=== PATIENT | female | born 1950 | race Two or more races ===

== ENCOUNTER 2016-12-13 10:10 | Outpatient (CLI) | payer MEDICARE, OTHER | END 2016-12-13 23:59 | disposition home or self-care (01) | LOC: WOU 10:10 | PROVIDERS: ATTEND Podiatrist Foot & Ankle Surgery | DX: M21.622 Bunionette of left foot (principal); M20.12 Hallux valgus (acquired), left foot; M19.90 Unspecified osteoarthritis, unspecified site; J45.909 Unspecified asthma, uncomplicated; H40.9 Unspecified glaucoma; Z79.899 Other long term (current) drug therapy | CPT/HCPCS: G0463 ==

== ENCOUNTER 2016-12-18 09:00 | Outpatient (CLI) | payer MEDICARE, OTHER | END 2016-12-18 23:59 | disposition home or self-care (01) | LOC: WOU 09:00 | PROVIDERS: ATTEND Podiatrist Foot & Ankle Surgery | DX: M19.072 Primary osteoarthritis, left ankle and foot (principal); M19.071 Primary osteoarthritis, right ankle and foot; M20.11 Hallux valgus (acquired), right foot; M21.42 Flat foot [pes planus] (acquired), left foot; M20.12 Hallux valgus (acquired), left foot | CPT/HCPCS: 73630-TC ==

== ENCOUNTER 2016-12-20 09:21 | Outpatient (CLI) | payer MEDICARE, OTHER | END 2016-12-20 23:59 | disposition home or self-care (01) | LOC: WOU 09:21 | PROVIDERS: ATTEND Podiatrist Foot & Ankle Surgery | DX: M20.12 Hallux valgus (acquired), left foot (principal); M21.622 Bunionette of left foot; M20.5X2 Other deformities of toe(s) (acquired), left foot; M79.672 Pain in left foot; M19.072 Primary osteoarthritis, left ankle and foot | CPT/HCPCS: G0463 ==

== ENCOUNTER 2017-01-03 09:30 | Inpatient (IN) | payer MEDICARE, OTHER ==
[2017-01-03] MEDS ORDERED: MAG HYDROX/AL HYDROX/SIMETH 30 ML UDC PO PRN (11:30)
[2017-01-03] MEDS ORDERED: ACETAMINOPHEN 325 MG TABLET PO PRN (11:30)
[2017-01-03] MEDS ORDERED: ZOLPIDEM TARTRATE 5 MG TABLET PO PRN (11:30)
[2017-01-03] MEDS ORDERED: ONDANSETRON HCL/PF 4 MG/2 ML VIAL IVP PRN (11:30)
[2017-01-03] MEDS ORDERED: MAGNESIUM HYDROXIDE 30 ML UDC PO PRN (11:30)
[2017-01-03] MEDS ORDERED: Z GUARD REMEDY 2 OZ OINT TP PRN (11:30)
[2017-01-03] MEDS ORDERED: MIDAZOLAM HCL 2 MG/2ML VIAL ONE (12:04)
[2017-01-03] MEDS ORDERED: FENTANYL PF 100MCG/2ML AMPUL ONE ×4 (12:04→15:44)
[2017-01-03] MEDS ORDERED: LIDOCAINE 1% INJ 50 ML MDV IJ ONE (12:11)
[2017-01-03] MEDS ORDERED: BUPIVACAINE MPF 0.5% W/EPI INJ 30 ML VIAL ONE (12:11)
[2017-01-03] MEDS ORDERED: HYDROMORPHONE 1 MG/1 ML DISP.SYRIN ONE ×2 (16:34→16:52)
[2017-01-03] MEDS ORDERED: ANESTHESIA TRAY IN PYXIS 1 EA TRAY MC ONE (17:21)
[2017-01-03] MEDS ORDERED: BIMA2.5D5 EACHEYE (17:30)
[2017-01-03] MEDS ORDERED: VALS80TA2 PO (17:30)
[2017-01-03] MEDS ORDERED: TRAM50TA2 PO (17:30)
[2017-01-03] MEDS ORDERED: CELE200C PO (17:30)
[2017-01-03] MEDS ORDERED: CYCL30DR EACHEYE (17:30)
[2017-01-03] MEDS ORDERED: DOCU-25 PO (17:30)
[2017-01-03] MEDS ORDERED: BRIM5DRO EACHEYE (17:30)
[2017-01-03] MEDS ORDERED: METH2.5T PO (17:30)
[2017-01-03] MEDS ORDERED: TRIA1CAP6 PO (17:30)
[2017-01-03] MEDS ORDERED: PANT40TA4 PO (17:30)
[2017-01-03] MEDS ORDERED: TIMO5DRO4 EACHEYE (17:30)
[2017-01-03] MEDS ORDERED: AMLO5TAB2 PO (17:30)
[2017-01-03] MEDS ORDERED: ALBU18HF2 IH (17:30)
[2017-01-03] MEDS ORDERED: FOLI1TAB16 PO (17:30)
[2017-01-03] MEDS ORDERED: SULF500T8 PO (17:31)
[2017-01-04] MEDS: PANTOPRAZOLE 40 MG TABLET.DR PO SCH (08:17)
[2017-01-04] MEDS: VALSARTAN 80 MG TABLET PO SCH (13:01)
[2017-01-04] MEDS: AMLODIPINE BESYLATE 5 MG TABLET PO SCH (13:01)
[2017-01-05] MEDS: HYDROCODONE/APAP 5/325MG 1 EACH TABLET PO PRN ×2 (00:55→08:44)
[2017-01-05] MEDS: PANTOPRAZOLE 40 MG TABLET.DR PO SCH (08:30)
[2017-01-05] MEDS: AMLODIPINE BESYLATE 5 MG TABLET PO SCH (08:30)
[2017-01-05] MEDS: VALSARTAN 80 MG TABLET PO SCH (08:31)
[2017-01-05] MEDS ORDERED: TRAMADOL HCL 50 MG TABLET PO PRN (09:00)
[2017-01-05] MEDS ORDERED: TIMOLOL 0.5% SOLN OPHTH 5 ML BOTTLE EACHEYE SCH (09:00)
[2017-01-05] MEDS ORDERED: DOCUSATE SODIUM 100 MG CAPSULE PO PRN (09:00)
[2017-01-05] MEDS ORDERED: Medication Not On Formulary EA (Cyclosporine (Restasis) 1 DROP) EACHEYE SCH (09:00)
[2017-01-05] MEDS: TRIAMTERENE/HYDROCHLOROTHIAZID (37.5/25MG) 1 UDCAP PO SCH (10:09)
[2017-01-05] MEDS: CELECOXIB 100 MG CAPSULE PO SCH (10:10)
[2017-01-05] MEDS: FOLIC ACID 1 MG TABLET PO SCH (10:10)
[2017-01-05] MEDS: SULFASALAZINE 500 MG TABLET PO SCH ×2 (11:29→17:59)
[2017-01-05] MEDS: BRIMONIDINE TARTRATE OPHT SOLN 5 ML BOTTLE EACHEYE SCH ×2 (11:32→17:59)
[2017-01-05] MEDS ORDERED: ALBUTEROL FS 2.5 MG/3 ML VIAL.NEB NEB SCH (13:30)
[2017-01-05] MEDS: TIMOLOL EYE EACHEYE SCH (17:59)
[2017-01-05] MEDS: ALBUTEROL FS 2.5 MG/3 ML VIAL.NEB NEB SCH (19:30)
[2017-01-05] MEDS ORDERED: LATANOPROST EYE DROP 0.005% 2.5 ML BOTTLE OP SCH (22:00)
[2017-01-05] MEDS ORDERED: LATANOPROST EYE DROP 0.005% 2.5 ML BOTTLE EACHEYE SCH (22:00)
[2017-01-06] MEDS: BRIMONIDINE TARTRATE OPHT SOLN 5 ML BOTTLE EACHEYE SCH ×2 (01:52→10:47)
[2017-01-06] MEDS ORDERED: PANTOPRAZOLE 40 MG TABLET.DR PO SCH (07:30)
[2017-01-06] MEDS: ALBUTEROL FS 2.5 MG/3 ML VIAL.NEB NEB SCH (07:30)
[2017-01-06] MEDS: FOLIC ACID 1 MG TABLET PO SCH (08:25)
[2017-01-06] MEDS: VALSARTAN 80 MG TABLET PO SCH (08:25)
[2017-01-06] MEDS: AMLODIPINE BESYLATE 5 MG TABLET PO SCH (08:26)
[2017-01-06] MEDS: CELECOXIB 100 MG CAPSULE PO SCH (08:26)
[2017-01-06] MEDS: SULFASALAZINE 500 MG TABLET PO SCH (08:27)
[2017-01-06] MEDS: PANTOPRAZOLE 40 MG TABLET.DR PO SCH (08:27)
[2017-01-06] MEDS: TRIAMTERENE/HYDROCHLOROTHIAZID (37.5/25MG) 1 UDCAP PO SCH (08:27)
[2017-01-06] MEDS: TIMOLOL EYE EACHEYE SCH (08:28)
== END 2017-01-06 15:15 | DRG 505 ==
DX: M19.072 Primary osteoarthritis, left ankle and foot (principal); I10 Essential (primary) hypertension; E66.9 Obesity, unspecified; M20.12 Hallux valgus (acquired), left foot; J45.909 Unspecified asthma, uncomplicated; M21.42 Flat foot [pes planus] (acquired), left foot; M21.622 Bunionette of left foot

== ENCOUNTER 2017-01-10 12:31 | Outpatient (CLI) | payer MEDICARE, OTHER ==
[~2017-01-10 12:31] MED LIST: ALBU18HF2 IH; AMLO5TAB2 PO; BIMA2.5D5 EACHEYE; BRIM5DRO EACHEYE; CELE200C PO; CYCL30DR EACHEYE; DOCU-25 PO; FOLI1TAB16 PO; METH2.5T PO; PANT40TA4 PO; SULF500T8 PO; TIMO5DRO4 EACHEYE; TRAM50TA2 PO; TRIA1CAP6 PO; VALS80TA2 PO
== END 2017-01-10 23:59 | disposition home or self-care (01) ==
LOC: WOU 12:31
PROVIDERS: ATTEND Podiatrist Foot & Ankle Surgery
DX: Z47.89 Encounter for other orthopedic aftercare (principal); Z98.1 Arthrodesis status; M06.9 Rheumatoid arthritis, unspecified; M20.5X2 Other deformities of toe(s) (acquired), left foot; M79.672 Pain in left foot
CPT/HCPCS: A6402 ×2; G0463

== ENCOUNTER 2017-01-24 09:20 | Outpatient (CLI) | payer MEDICARE, OTHER | END 2017-01-24 23:59 | disposition home or self-care (01) | LOC: WOU 09:20 | PROVIDERS: ATTEND Podiatrist Foot & Ankle Surgery | DX: Z48.01 Encounter for change or removal of surgical wound dressing (principal); M06.9 Rheumatoid arthritis, unspecified; Z98.1 Arthrodesis status; M20.12 Hallux valgus (acquired), left foot; M20.5X2 Other deformities of toe(s) (acquired), left foot | CPT/HCPCS: A6402; G0463 ==

== ENCOUNTER 2017-02-18 11:00 | Outpatient (CLI) | payer MEDICARE, OTHER | END 2017-02-18 23:59 | disposition home or self-care (01) | LOC: WOU 11:00 | PROVIDERS: ATTEND Podiatrist Foot & Ankle Surgery | DX: Z47.89 Encounter for other orthopedic aftercare (principal); Z48.02 Encounter for removal of sutures; Z98.1 Arthrodesis status; M21.962 Unspecified acquired deformity of left lower leg | CPT/HCPCS: 73630; G0463 ==

== ENCOUNTER 2017-03-18 10:27 | Outpatient (CLI) | payer MEDICARE, OTHER | END 2017-03-18 23:59 | disposition home or self-care (01) | LOC: WOU 10:27 | PROVIDERS: ATTEND Podiatrist Foot & Ankle Surgery | DX: Z47.89 Encounter for other orthopedic aftercare (principal); Z98.1 Arthrodesis status; M20.12 Hallux valgus (acquired), left foot; M20.5X2 Other deformities of toe(s) (acquired), left foot; M06.9 Rheumatoid arthritis, unspecified; R60.0 Localized edema | CPT/HCPCS: G0463 ==

== ENCOUNTER 2017-05-06 09:46 | Outpatient (CLI) | payer MEDICARE, OTHER ==
[~2017-05-06 09:46] MED LIST changes: +DOCU-141 PO; -DOCU-25 PO
== END 2017-05-06 23:59 | disposition home or self-care (01) ==
LOC: WOU 09:46
PROVIDERS: ATTEND Podiatrist Foot & Ankle Surgery
DX: Z98.1 Arthrodesis status (principal); Z47.89 Encounter for other orthopedic aftercare; M20.12 Hallux valgus (acquired), left foot; M20.5X2 Other deformities of toe(s) (acquired), left foot; M06.9 Rheumatoid arthritis, unspecified
CPT/HCPCS: G0463

== ENCOUNTER 2017-07-15 09:30 | Outpatient (CLI) | payer MEDICARE, OTHER | END 2017-07-15 23:59 | disposition home or self-care (01) | LOC: WOU 09:30 | PROVIDERS: ATTEND Podiatrist Foot & Ankle Surgery | DX: Z09 Encounter for follow-up examination after completed treatment for conditions other than malignant neoplasm (principal); M06.9 Rheumatoid arthritis, unspecified; M20.5X1 Other deformities of toe(s) (acquired), right foot; J45.909 Unspecified asthma, uncomplicated; H40.9 Unspecified glaucoma | CPT/HCPCS: G0463 ==

== ENCOUNTER → 2017-10-31 | Outpatient (CLI) | payer MEDICARE, OTHER | END | disposition home or self-care (01) | LOC: WOU 09:10 | PROVIDERS: ATTEND Podiatrist Foot & Ankle Surgery | DX: Z98.1 Arthrodesis status (principal); Z47.89 Encounter for other orthopedic aftercare; M21.611 Bunion of right foot; M20.41 Other hammer toe(s) (acquired), right foot; M06.9 Rheumatoid arthritis, unspecified; J45.909 Unspecified asthma, uncomplicated; M20.11 Hallux valgus (acquired), right foot; M25.571 Pain in right ankle and joints of right foot | CPT/HCPCS: G0463; Z7610 ==

== ENCOUNTER 2017-11-05 11:51 | Outpatient (CLI) | payer MEDICARE, OTHER | END 2017-11-05 23:59 | disposition home or self-care (01) | LOC: RAD 11:51 | PROVIDERS: ATTEND Podiatrist Foot & Ankle Surgery | DX: M19.072 Primary osteoarthritis, left ankle and foot (principal); M20.11 Hallux valgus (acquired), right foot; M85.872 Other specified disorders of bone density and structure, left ankle and foot; M85.871 Other specified disorders of bone density and structure, right ankle and foot | CPT/HCPCS: 73630-TC ==

== ENCOUNTER 2017-11-20 09:37 | Outpatient (CLI) | payer MEDICARE, OTHER ==
[2017-11-21] MEDS ORDERED: LORA10TA68 PO (18:06)
[2017-11-21] MEDS ORDERED: CERT400K SQ (18:06)
[2017-11-21] MEDS ORDERED: BECL10.6 IH (18:06)
[2017-11-21] MEDS ORDERED: ACET-2605 PO (18:06)
[2017-11-21] MEDS ORDERED: SUMA50TA PO (18:06)
== END 2017-11-20 23:59 | disposition home or self-care (01) ==
LOC: RAD 09:37
PROVIDERS: ATTEND Podiatrist Foot & Ankle Surgery
DX: M43.00 Spondylolysis, site unspecified (principal); J93.9 Pneumothorax, unspecified
CPT/HCPCS: 71046

== ENCOUNTER 2017-11-28 08:57 | Outpatient (CLI) | payer MEDICARE, OTHER ==
[~2017-11-28 08:57] MED LIST changes: +ACET-2605 PO; +BECL10.6 IH; +CERT400K SQ; -DOCU-141 PO; -FOLI1TAB16 PO; +HYDR-552 PO; +LEFL20TA18 PO; +LORA10TA68 PO; -SULF500T8 PO; +SUMA50TA PO; -TRAM50TA2 PO; -VALS80TA2 PO
== END 2017-11-28 23:59 | disposition home or self-care (01) ==
LOC: WOU 08:57
PROVIDERS: ATTEND Podiatrist Foot & Ankle Surgery
DX: Z47.89 Encounter for other orthopedic aftercare (principal); M20.41 Other hammer toe(s) (acquired), right foot; M06.9 Rheumatoid arthritis, unspecified; Z98.1 Arthrodesis status; H40.9 Unspecified glaucoma; J45.909 Unspecified asthma, uncomplicated; Z79.51 Long term (current) use of inhaled steroids
CPT/HCPCS: A6402; G0463; Z7610

== ENCOUNTER 2017-11-28 12:23 | Outpatient (CLI) | payer MEDICARE, OTHER | END 2017-11-28 23:59 | disposition home or self-care (01) | LOC: MSC 12:23 | PROVIDERS: ATTEND Internal Medicine | DX: Z48.89 Encounter for other specified surgical aftercare (principal); I10 Essential (primary) hypertension; M06.9 Rheumatoid arthritis, unspecified; J45.909 Unspecified asthma, uncomplicated; Z98.1 Arthrodesis status ==

== ENCOUNTER 2017-12-03 10:18 | Outpatient (CLI) | payer MEDICARE, OTHER | END 2017-12-03 23:59 | disposition home or self-care (01) | LOC: RAD 10:18 | PROVIDERS: ATTEND Podiatrist Foot & Ankle Surgery | DX: Z48.89 Encounter for other specified surgical aftercare (principal); M20.11 Hallux valgus (acquired), right foot; M15.2 Bouchard's nodes (with arthropathy); M85.871 Other specified disorders of bone density and structure, right ankle and foot | CPT/HCPCS: 73630-TC ==

== ENCOUNTER 2017-12-05 09:00 | Outpatient (CLI) | payer MEDICARE, OTHER | END 2017-12-05 23:59 | disposition home or self-care (01) | LOC: WOU 09:00 | PROVIDERS: ATTEND Podiatrist Foot & Ankle Surgery | DX: Z47.89 Encounter for other orthopedic aftercare (principal); Z98.1 Arthrodesis status; M06.9 Rheumatoid arthritis, unspecified; M20.41 Other hammer toe(s) (acquired), right foot; H40.9 Unspecified glaucoma; J45.909 Unspecified asthma, uncomplicated; Z79.899 Other long term (current) drug therapy | CPT/HCPCS: A6402; G0463; Z7610 ==

== ENCOUNTER 2017-12-17 10:14 | Outpatient (CLI) | payer MEDICARE, OTHER | END 2017-12-17 23:59 | disposition home or self-care (01) | LOC: RAD 10:14 | PROVIDERS: ATTEND Podiatrist Foot & Ankle Surgery | DX: S92.321D Displaced fracture of second metatarsal bone, right foot, subsequent encounter for fracture with routine healing (principal); I10 Essential (primary) hypertension; X58.XXXD Exposure to other specified factors, subsequent encounter; Z98.890 Other specified postprocedural states | CPT/HCPCS: 73630-TC ==

== ENCOUNTER 2017-12-19 09:07 | Outpatient (CLI) | payer MEDICARE, OTHER | END 2017-12-19 23:59 | disposition home or self-care (01) | LOC: WOU 09:07 | PROVIDERS: ATTEND Podiatrist Foot & Ankle Surgery | DX: Z47.89 Encounter for other orthopedic aftercare (principal); M06.9 Rheumatoid arthritis, unspecified; M20.41 Other hammer toe(s) (acquired), right foot; Z98.1 Arthrodesis status | CPT/HCPCS: A6402; G0463; Z7610 ==

== ENCOUNTER 2018-01-09 09:02 | Outpatient (CLI) | payer MEDICARE, OTHER | END 2018-01-09 23:59 | disposition home or self-care (01) | LOC: WOU 09:02 | PROVIDERS: ATTEND Podiatrist Foot & Ankle Surgery | DX: T81.89XA Other complications of procedures, not elsewhere classified, initial encounter (principal); Z98.1 Arthrodesis status; M60.9 Myositis, unspecified; M21.612 Bunion of left foot; H40.9 Unspecified glaucoma | CPT/HCPCS: A6402; G0463; Z7610 ==

== ENCOUNTER 2018-01-14 11:33 | Outpatient (CLI) | payer MEDICARE, OTHER ==
[~2018-01-14 11:33] MED LIST changes: -AMLO5TAB2 PO; +AMLO5TAB7 PO
== END 2018-01-14 23:59 | disposition home or self-care (01) ==
LOC: RAD 11:33
PROVIDERS: ATTEND Podiatrist Foot & Ankle Surgery
DX: M24.674 Ankylosis, right foot (principal); M85.871 Other specified disorders of bone density and structure, right ankle and foot; M79.89 Other specified soft tissue disorders
CPT/HCPCS: 73630-TC

== ENCOUNTER 2018-01-16 08:45 | Outpatient (CLI) | payer MEDICARE, OTHER | END 2018-01-16 23:59 | disposition home or self-care (01) | LOC: WOU 08:45 | PROVIDERS: ATTEND Podiatrist Foot & Ankle Surgery | DX: Z51.89 Encounter for other specified aftercare (principal); Z98.1 Arthrodesis status; M06.9 Rheumatoid arthritis, unspecified; M20.41 Other hammer toe(s) (acquired), right foot; H40.9 Unspecified glaucoma | CPT/HCPCS: A6402; G0463; Z7610 ==

== ENCOUNTER 2018-04-14 08:59 | Outpatient (CLI) | payer MEDICARE, OTHER ==
[~2018-04-14 08:59] MED LIST changes: +HYDR-4384 PO; -HYDR-552 PO
== END 2018-04-14 23:59 | disposition home or self-care (01) ==
LOC: WOU 08:59
PROVIDERS: ATTEND Podiatrist Foot & Ankle Surgery
DX: M06.9 Rheumatoid arthritis, unspecified (principal); M20.41 Other hammer toe(s) (acquired), right foot; Z98.1 Arthrodesis status
CPT/HCPCS: G0463; Z7610; A6402

== ENCOUNTER 2020-11-24 09:50 | Outpatient (CLI) | payer MEDICARE, OTHER ==
[~2020-11-24 09:50] MED LIST changes: +AMLO-212 PO; -AMLO5TAB7 PO; -PANT40TA4 PO; +PANT40TA49 PO
== END 2020-11-24 23:59 | disposition home or self-care (01) ==
LOC: WOU 09:50
PROVIDERS: ATTEND Podiatrist Foot & Ankle Surgery
DX: M20.5X2 Other deformities of toe(s) (acquired), left foot (principal); L84 Corns and callosities; M79.89 Other specified soft tissue disorders; M79.672 Pain in left foot; R26.2 Difficulty in walking, not elsewhere classified
CPT/HCPCS: G0463